=== PATIENT | female | born 2000 | race Hispanic/Latino ===

== ENCOUNTER 2023-02-22 23:21 | Emergency (ER) | payer SELFPAY | END 2023-02-22 23:36 | disposition left against medical advice (07) | DRG 951 | LOC: ED 23:21 → LWOBS 23:33 | DX: Z53.21 Procedure and treatment not carried out due to patient leaving prior to being seen by health care provider (principal) ==

== ENCOUNTER 2024-04-12 20:39 | Emergency (ER) | payer OTHER ==
[~2024-04-12] VITALS: Ht 157.5 cm; Wt 45.0 kg
[2024-04-12] MEDS ORDERED: ERYTHROMYCIN OPTHALMIC 5 MG/GM TUBE OS ONE (21:40)
[2024-04-12] MEDS ORDERED: TETRACAINE HCL 0.5 %/4 ML SOL OS ONE (21:40)
[2024-04-12] MEDS ORDERED: FLUORESCEIN SODIUM 1 MG EA OS ONE (21:40)
[2024-04-12] MEDS ORDERED: HYDROcodone 5 MG/Acetaminophen 325 MG/COMBO PO ONE (23:10)
[2024-04-12] MEDS ORDERED: ONDANSETRON 4 MG/TAB ODT SL ONE (23:10)
[2024-04-12] MEDS ORDERED: KETOROLAC TROMETHAMINE 30 MG/ML SDV IM ONE (23:10)
[2024-04-12] MEDS ORDERED: ZOFRAN4 MG/TAB PO (23:20)
[2024-04-12] MEDS ORDERED: POLYMYXIN B SUL1 SOL OS (23:20)
[2024-04-12] MEDS ORDERED: HYDROCO/APAP1 TA9 PO (23:20)
[2024-04-12 23:42] VITALS: BP 118/86
== END 2024-04-12 23:42 | disposition home or self-care (01) | DRG 122 ==
LOC: ED 20:39
DX: H16.002 Unspecified corneal ulcer, left eye (principal)